=== PATIENT | female | born 1995 | race Hispanic/Latino ===

== ENCOUNTER 2017-11-16 03:43 | Inpatient (IN) | payer SELFPAY ==
[2017-11-16] MEDS ORDERED: BUTORPHANOL 1 MG/ML INJ IV PRN (03:45)
[2017-11-16] MEDS ORDERED: PROMETHAZINE 25 MG/ML VIAL IM PRN (03:45)
[2017-11-16] MEDS ORDERED: METHYLERGONOVINE 0.2MG/ML AMP IM PRN ×2 (03:45→13:49)
[2017-11-16] MEDS ORDERED: CARBOPROST TROME 250 MCG/ML IM PRN ×2 (03:45→13:48)
[2017-11-16] MEDS ORDERED: MEPERIDINE HCL 25 MG/0.5 ML IV PRN (03:45)
[2017-11-16] MEDS ORDERED: Ringers Lactate 1,000 ML IV PRN (03:45)
[2017-11-16] MEDS ORDERED: MIDAZOLAM HCL 2 MG/2 ML INJ IV PRN (03:45)
[2017-11-16] MEDS ORDERED: OXYTOCIN/LR 20 UNIT/1,000 ML BAG IV SCH ×2 (04:00→19:00)
[2017-11-16] MEDS ORDERED: Ringers Lactate 1,000 ML IV SCH (04:00)
[2017-11-16 05:31] LABS: RPR Titer ND
[2017-11-16 05:34] LABS: Urine Appearance CLEAR; Urine Bilirubin NEGATIVE (NEG); Urine Blood NEGATIVE (NEG); Urine Color YELLOW; Urine Glucose NEGATIVE (NEG); Urine Protein NEGATIVE (NEG); Urine Urobilinogen 0.2 mg/dL (0.2-1.0)
[2017-11-16 05:35] LABS: Urine Microscopic Reflex NO UMIC
[2017-11-16 05:41] VITALS: BMI 26.2
[2017-11-16 06:40] LABS: Absolute Lymphocytes (CBC) 1.7 K/uL (0.7-4.9); Absolute Monocytes 0.6 K/uL (0.1-1.3); Absolute Neutrophil 6.3 K/uL (1.8-8.0); Basophils % 0.3 % (0-1.3); Eosinophils % 0.7 % (0-4.4); Lymphocytes % 19.1 % (15.3-44.8); MCH 35.5 pg (27.0-35.0); MCV 100.5 fL (80-100); Monocytes % 6.7 % (3.3-12.3); RBC Red Blood Cell Count 3.88 M/uL (3.86-4.86)
[2017-11-16] MEDS ORDERED: INFLUENZA VACCINE (for 3y+) 0.5 ML DOSE IMVAC ONE (08:00)
[2017-11-16] MEDS ORDERED: LIDOCAINE 2% 20 ML MDV IV ONE (08:07)
[2017-11-16] MEDS ORDERED: PROMETHAZINE HCL 50 MG/ML AMP IM PRN (10:29)
--- NOTE | 2017-11-16 11:44 | PREOPHP ---
Date of Admission: 11/16/2017 A 22-year-old 2, para 0, at 39 weeks and 2 days for induction; 1.5 to 2 cm, 50% to 60% efface d, vertex, -1 station. FHTs normal, reactive. Rupture of membranes, clear fluid. Rh positive, immu ne to Rubella. Negative beta strep screen. Labor talk given. Anticipate delivery sometime later to day. YOVANNY/ALEX Voice ID: [id number]
[2017-11-16] MEDS ORDERED: ROPIVACAINE HCL 100 ML IV PRN (14:58)
[2017-11-16] MEDS ORDERED: ROPIVACAINE HCL 0.2% 20ML AMP IV ONE (14:59)
[2017-11-16] MEDS ORDERED: FENTANYL CITR 100 MCG/2 ML IV ONE (14:59)
--- NOTE | 2017-11-16 16:20 | PN ---
A 22-year-old female, now 6.5 cm, 80% effaced, vertex, still -1 to almost 0 station. [place] reg ularly. Baby looks good. YOVANNY/ALEX Voice ID: [id number] Report ID: [id number]
[2017-11-16] MEDS ORDERED: IBUPROFEN 200 MG TAB PO PRN (18:20)
[2017-11-16] MEDS ORDERED: ACETAMINOPHEN 500 MG TAB PO PRN (18:20)
[2017-11-16] MEDS ORDERED: METHYLERGONOVINE 0.2 MG TAB PO PRN (18:20)
[2017-11-16] MEDS ORDERED: Oxycodone HCl/Acetaminophen 1 TAB TAB PO PRN ×2 (18:20)
[2017-11-16] MEDS ORDERED: DOCUSATE NA/SENNA CONC 1 TAB PO PRN (18:20)
[2017-11-16] MEDS ORDERED: BISACODYL 10 MG RECTAL SUPP RECT PRN (18:20)
[2017-11-16] MEDS ORDERED: DIPHENHYDRAMINE 25 MG TAB/CAP PO PRN (18:20)
--- NOTE | 2017-11-16 19:38 | OP ---
Surgeon: Gabo Lancaster MD A 22-year-old female, 2, para 0, AB 1, 39 weeks and 2-3 days, came at 1-1/2 to 2 cm, rupture of membranes, went into an active labor pattern. At approximately 5-6 received epidural anesthesia, which gave good effect during remainder of labor and delivery. In fact, epidural had to be cut back because the patient was so numb. Second stage of approximately 1 hour because of the basically ineff ective pushing. Finally, the patient felt the urge to push and delivered spontaneously of an estimat ed 8 pound male , Apgars 9 and 9. Midline second degree episiotomy, repaired with 2-0 chromic. Schultze delivery of the placenta was inspected and noted to be intact and normal. Mild uterine hy potonus, 0.2 mg of Methergine IM. Estimated blood loss 400 cc. Rh positive, immune to Rubella. Neg ative beta strep screen. Tolerated all procedures well. Final Diagnoses: 1.Term intrauterine , 39 weeks and 3 days. 2.Vaginal delivery. 3.Epidural anesthesia. 4.Mild uterine hypotonus. YOVANNY/LINDSEYL Voice ID: [id number] Report ID: [id number]
--- NOTE | 2017-11-16 19:50 | PN ---
The patient is now completely dilated, +1 station. She is very numb. She is only on 8 mL an hour of maintenance dose, but we may have to turn it down a little bit but first we will see if she can push effectively. Baby looks good. If she is a good pusher, it should not take too long, but we will se e how the epidural is affected her ability to push. YOVANNY/ALEX Voice ID: [id number] Report ID: [id number]
[2017-11-16 22:44] LABS: RPR (Rapid Plasma Reagin) NON-REACT (NON-REACT)
--- NOTE | 2017-11-17 09:09 | PN ---
The patient is on 20 milliunits of Pitocin, michael every 2 minutes. Baby looks good. She has h ad 1 dose of Stadol. She is now 3 cm, 60-70% effaced, still -1 station, clear fluid. Anticipate mor e rapid progress once she achieves 5 cm. YOVANNY/ALEX Voice ID: [id number] Report ID: [id number]
[2017-11-17 15:33] VITALS: BP 96/55; TEMP 97.6
--- NOTE | 2017-11-18 01:25 | DS ---
Date of Discharge: 11/17/2017 This is a 22-year-old female, 4, para 3. DICTATION ENDS HERE. YOVANNY/ALEX Voice ID: [id number] Report ID: [id number]
--- NOTE | 2017-11-18 01:25 | DS ---
Date of Discharge: 11/17/2017 Hospital Course: Macey Velásquez is a 22-year-old primigravida, 39 weeks 3 days. Delivery of an est imated 8-pound plus or minus male infant. Apgars 9 and 9. Epidural anesthesia. Second-degree episi otomy repaired with 2-0 chromic. Gibbs delivery of the placenta, which was inspected and noted to be intact and normal. Mild uterine hypotonus, 0.2 mg of Methergine IM as well as IV drip Pitocin and massage. Estimated blood loss 400 cc. Rh positive, immune to Rubella. Negative beta strep screen. afebrile, ambulating and voiding. Lochia is normal. No post-epidural problems. Will b e dismissed later this evening. To report back to my office in 6 weeks for followup. To report any temperature elevation of 100 degrees or greater, severe pain, heavy bleeding, or any other type of ab normalities. Dismissed with tramadol for analgesia. Final Diagnoses: Term intrauterine at 39 weeks 3 days, vaginal delivery, epidural anesthes ia, mild uterine hypotonus. YOVANNY/ALEX Voice ID: [id number] Report ID: [id number]
[2017-11-19 20:49] LABS: HBsAG Nonreactive (Nonreactive)
== END 2017-11-17 21:30 | disposition home or self-care (01) | DRG 775 ==
LOC: 2ND-WC 03:43
PROVIDERS: ADMIT Specialist; ATTEND Specialist
PROC: 10E0XZZ Delivery of Products of Conception, External Approach (ICD-10-PCS; principal; 2017-11-16)
PROC: 10907ZC Drainage of Amniotic Fluid, Therapeutic from Products of Conception, Via Natural or Artificial Opening (ICD-10-PCS; 2017-11-16)
PROC: 0W8NXZZ Division of Female Perineum, External Approach (ICD-10-PCS; 2017-11-16)
DX: O62.1 Secondary uterine inertia (principal); Z37.0 Single live birth; Z3A.39 39 weeks gestation of pregnancy
CPT/HCPCS: 36415; 81003; 85025; 86592; 86850; 86900; 86901; 87340; J0595; J2210; J2550; J2590; J2795; J3010